=== PATIENT | male | born 1990 | race Caucasian/White ===

== ENCOUNTER 2021-11-15 17:46 | Emergency (ER) | payer SELFPAY ==
[~2021-11-15] VITALS: Ht 177.8 cm; Wt 81.6 kg
[2021-11-15 17:50] VITALS: BP 129/80
[2021-11-16] MEDS ORDERED: OMEP20TC22 PO (08:45)
== END 2021-11-15 20:00 | disposition left against medical advice (07) ==
LOC: MED 17:46
DX: R53.83 Other fatigue (principal); R42 Dizziness and giddiness; Z53.21 Procedure and treatment not carried out due to patient leaving prior to being seen by health care provider

== ENCOUNTER 2021-11-16 07:42 | Emergency (ER) | payer MEDICAID ==
[~2021-11-16] VITALS: Ht 177.8 cm; Wt 82.1 kg
--- NOTE | 2021-11-16 07:49 | NUR ---
pt walked out of er through front lobby at this time
--- NOTE | 2021-11-16 07:53 | NUR ---
name called, no answer
--- NOTE | 2021-11-16 08:08 | NUR ---
in triage, pt was refusing bp reading and states he did not want to be in a room, pt walked outside and states he wanted rx for omeprazole
--- NOTE | 2021-11-16 08:42 | NUR ---
emerson spoke with pt in [place]
[2021-11-16] MEDS ORDERED: OMEP20TC22 PO (08:45)
--- NOTE | 2021-11-16 08:49 | NUR ---
CALLED PTS FRIEND ABNER [phone] TO [employer] APPRENTICE PT, STATED THAT HE WILL COME PICK HIM UP.
--- NOTE | 2021-11-16 08:50 | NUR ---
PT SEEN AND D/C BY DR AUGUST, NO NURSING INTERVENTIONS PROVIDED.
--- NOTE | 2021-11-16 08:50 | NUR ---
Patient discharged with v/s stable. Written and verbal after care instructions ABOUT MEDICINE REFILL AT THE ED given and explained. Patient alert, oriented and verbalized understanding of instructions. Ambulatory with steady gait. All questions addressed prior to discharge. ID band removed. Patient advised to follow up with PMD. Rx of OMEPRAZOLE given. Patient educated on indication of medication including possible reaction and side effects. Opportunity to ask questions provided and answered.
== END 2021-11-16 08:50 | disposition home or self-care (01) ==
LOC: MED 07:42
DX: K29.70 Gastritis, unspecified, without bleeding (principal); Z76.0 Encounter for issue of repeat prescription
CPT/HCPCS: 99281; 99282